=== PATIENT | female | born 1975 | race Caucasian/White ===

== ENCOUNTER 2017-05-04 21:44 | Emergency (ER) | payer BC ==
[2017-05-04 21:55] VITALS: BP 121/67; PULSE 80; RESP 16; TEMP 98.2; O2SAT 100
[2017-05-04] MEDS ORDERED: Iohexol 240 (50 ml) ONE (22:42)
[2017-05-04] MEDS: Iohexol 240 (50 ml) PO STA ×2 (22:51→22:55)
--- NOTE | 2017-05-04 22:56 | ED PDOC ---
HPI: Abdomen Time Seen by Provider: 05/04/17 22:02 Chief Complaint (Nursing): Abdominal Pain Chief Complaint (Provider): Abdominal pain, nausea History Per: Patient History/Exam Limitations: no limitations Onset/Duration Of Symptoms: Days (5) Additional Complaint(s): Pt states the first 2 days she has ruq pain. PT states after that she had generalized abdominal pain and nausea. Pt states she has been having frequent BM the last 2 days but they are formed. Pt denies fever/chills. No similar in the past. Past Medical History Reviewed: Historical Data, Nursing Documentation, Vital Signs Vital Signs: Last Vital Signs Temp 98.2 F 05/04/17 21:52 Pulse 80 05/04/17 21:52 Resp 16 05/04/17 21:52 BP 121/67 05/04/17 21:52 Pulse Ox 100 05/04/17 22:56 - Medical History PMH: No Chronic Diseases - Surgical History Surgical History: No Surg Hx - Family History Family History: States: No Known Family Hx - Living Arrangements Living Arrangements: With Family - Social History Current smoker - smoking cessation education provided: No - Home Medications Home Medications: Ambulatory Orders Medication Instructions Recorded No Known Home Med 05/04/17 - Allergies Allergies/Adverse Reactions: Allergies Allergy/AdvReac Type Severity Reaction Status Date / Time No Known Allergies Allergy Verified 05/04/17 21:55 Review of Systems ROS Statement: Except As Marked, All Systems Reviewed And Found Negative Constitutional: Negative for: Fever Gastrointestinal: Positive for: Nausea, Abdominal Pain, Diarrhea. Negative for : Vomiting Physical Exam - Reviewed Nursing Documentation Reviewed: Yes Vital Signs Reviewed: Yes - Physical Exam Appears: Positive for: Well, Non-toxic, No Acute Distress Head Exam: Positive for: ATRAUMATIC, NORMAL INSPECTION, NORMOCEPHALIC Skin: Positive for: Normal Color, Warm, DRY Eye Exam: Positive for: Normal appearance ENT: Positive for: Normal ENT Inspection Neck: Positive for: Normal, Painless ROM Cardiovascular/Chest: Positive for: Regular Rate, Rhythm Respiratory: Positive for: CNT, Normal Breath Sounds Gastrointestinal/Abdominal: Positive for: Bowel Sounds, Soft, Tenderness (Mild diffuse tenderness). Negative for: Normal Exam Back: Positive for: Normal Inspection Extremity: Positive for: Normal ROM Neurologic/Psych: Positive for: Alert, Oriented - Laboratory Results Result Diagrams: 05/04/17 23:03 05/04/17 23:03 - ECG O2 Sat by Pulse Oximetry: 100 Medical Decision Making Medical Decision Makin - Pt states she does not want a CT scan. Disposition - Clinical Impression Clinical Impression: Abdominal pain - Patient ED Disposition Is Patient to be Admitted: No Counseled Patient/Family Regarding: Diagnosis, Need For Followup - Disposition Disposition: Routine/Home Disposition Time: 00:13 Condition: GOOD Additional Instructions: Please return stool sample to be sent to lab. Instructions: Acute Abdominal Pain (ED)
[2017-05-04 23:13] LABS: BASO # 0.1 K/uL (0.0-0.2); BASO % 0.8 % (0.0-2.0); EOS # 0.1 K/uL (0.0-0.7); EOS % 1.6 % (0.0-4.0); HEMATOCRIT 36.4 % (34.0-47.0); LYMPH # 2.6 K/uL (1.0-4.3); LYMPH % 34.4 % (20.0-40.0); MEAN CORPUSCULAR HEMOGLOBIN 25.3 pg (27.0-31.0); MEAN CORPUSCULAR HGB CONC 32.8 g/dL (33.0-37.0); MEAN PLATELET VOLUME 8.6 fl (7.2-11.7); MONO # 0.7 K/uL (0.0-0.8); MONO % 8.7 % (0.0-10.0); NEUT # 4.1 K/uL (1.8-7.0); NEUT % 54.5 % (50.0-75.0); RED CELL DISTRIBUTION WIDTH 13.6 % (11.5-14.5); WHITE BLOOD COUNT 7.5 K/uL (4.8-10.8)
[2017-05-04 23:30] LABS: RBC URINE 48 /hpf (0-3); URINE BACTERIA RARE (<OCC); URINE BILIRUBIN NEGATIVE (NEGATIVE); URINE BLOOD LARGE (NEGATIVE); URINE COLOR YELLOW (YELLOW); URINE GLUCOSE (UA) NEG (Normal); URINE KETONE NEGATIVE (NEGATIVE); URINE LEUKOCYTE ESTERASE TRACE Leu/uL (Negative); URINE PROTEIN 30 mg/dL (NEGATIVE); URINE UROBILINOGEN 0.2-1.0 mg/dL (0.2-1.0); WBC URINE 9 /hpf (0-5)
[2017-05-04 23:31] LABS: ALB/GLOB RATIO 1.3 (1.0-2.1); ALKALINE PHOSPHATASE 50 U/L (38-126); ALT/SGPT 37 U/L (9-52); AST/SGOT 26 U/L (14-36); BILIRUBIN,TOTAL 0.2 mg/dl (0.2-1.3); BLOOD UREA NITROGEN 9 mg/dl (7-17); CALCIUM 9.5 mg/dL (8.4-10.2); CARBON DIOXIDE 27 mmol/L (22-30); CHLORIDE 103 mmol/L (98-107); GFR AFRICAN-AMERICAN > 60; GLUCOSE,RANDOM 99 mg/dL (65-105); POTASSIUM 4.1 MMOL/L (3.6-5.0); SODIUM 139 mmol/l (132-148)
== END 2017-05-05 00:17 | disposition home or self-care (01) ==
LOC: H.ER 21:44
DX: R10.9 Unspecified abdominal pain (principal); B95.2 Enterococcus as the cause of diseases classified elsewhere